=== PATIENT | female | born 1970 | race Caucasian/White ===

== ENCOUNTER 2018-03-19 16:16 | Emergency (ER) | payer SELFPAY ==
[2018-03-19 16:24] VITALS: BP 151/84; PULSE 66; RESP 20; TEMP 98.6; O2SAT 100
--- NOTE | 2018-03-19 17:18 | C.PDOC ---
History Of Present Illness 48 yo female w/o significant PMHx comes in for evaluation of posterior neck/occipital headache gradually developed for past 2 weeks. As per pt, pain is worse since last night. Pain is constant, aching over the back of neck and throbbing over right yazdanism area since today AM, (+) mild photophobia. 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 Pt admits, takes tylenol daily without improvement. Otherwise, pt denies fever, chills, denies worse headache of life, visual changes, focal deficits, CP, SOB, dyspnea, palpitation, denies weakness, sensory or vascular deficits to B/L UEs. Ambulate to Ed for evaluation, appears in pain. Time Seen by Provider: 03/19/18 17:16 Chief Complaint (Nursing): Headache History Per: Patient Past Medical History Reviewed: Historical Data, Nursing Documentation, Vital Signs Vital Signs: Last Vital Signs Temp 98.6 F 03/19/18 16:20 Pulse 66 03/19/18 16:20 Resp 20 03/19/18 16:20 BP 151/84 H 03/19/18 16:20 Pulse Ox 100 03/19/18 16:20 - Medical History PMH: No Chronic Diseases Surgical History: No Surg Hx Family History: States: No Known Family Hx - Social History Hx Tobacco Use: No Hx Alcohol Use: No Hx Substance Use: No Review Of Systems Except As Marked, All Systems Reviewed And Found Negative. Constitutional: Negative for: Fever, Chills Eyes: Negative for: Vision Change ENT: Negative for: Ear Discharge, Nose Discharge, Nose Congestion, Throat Pain Cardiovascular: Negative for: Chest Pain Respiratory: Negative for: Cough, Shortness of Breath Gastrointestinal: Negative for: Nausea, Vomiting, Abdominal Pain Genitourinary: Negative for: Dysuria Musculoskeletal: Positive for: Neck Pain Neurological: Positive for: Headache. Negative for: Weakness, Numbness, Altered Mental Status, Dizziness Physical Exam - Physical Exam Appears: Well, Non-toxic, Other (in pain) Skin: Normal Color, Warm, Dry Head: Atraumatic, Normacephalic Eye(s): bilateral: PERRL, EOMI Ear(s): Bilateral: Normal Nose: No Flaring, No Discharge, No Deformity, No Tenderness Oral Mucosa: Moist Tongue: Normal Appearing Lips: Normal Appearing Throat: No Erythema, No Drooling Neck: Trachea Midline, No Midline Cervical Tenderness, Paracervical Tenderness (diffuse R>L posterior cervical tenderness alongtrapezium muscle from occipital area extend down to upper back with palpable muscle spasm. No skin changes.), No Step Off Deformity, Supple Chest: Symmetrical Cardiovascular: Rhythm Regular, No Murmur, No JVD Respiratory: No Decreased Breath Sounds, No Accessory Muscle Use, No Stridor, No Wheezing Gastrointestinal/Abdominal: Soft, No Tenderness Back: Normal Inspection Extremity: Normal ROM, No Deformity, No Swelling Neurological/Psych: Oriented x3, Normal Speech, Normal Motor, Normal Sensation, Normal Reflexes ED Course And Treatment O2 Sat by Pulse Oximetry: 100 Pulse Ox Interpretation: Normal - CT Scan/US CT head w/o contasr Other Rad Studies (CT/US): Radiology Report Reviewed CT/US Interpretation: Creator : Trinity Gamez MD. Dictator : Trinity Gamez MD. Clerk Supervisor : User Experience Lead : Trinity Gamez MD. Approver2 : Report Date : 03/19/2018 18:01:23. My Comment : . Date of service: 2018-03-19 17:36:43. PROCEDURE: CT HEAD WITHOUT CONTRAST. HISTORY: pain. COMPARISON: None available. TECHNIQUE: Axial computed tomography images were obtained through the head/brain without int ravenous contrast. Radiation dose: Total exam DLP = 969.46 mGy-cm. This CT exam was performed using one or more of the following dose reduction techniques: Automated exposure control, adjustment of the mA and/or kV according to patient size, and/or use of iterative reconstruction technique. FINDINGS: HEMORRHAGE: No intracranial hemorrhage. BRAIN: No mass effect or edema. The sage-white ma tter differentiation appears intact. Please note that MRI with diffusion imaging is more sensitive in the detection of acute ischemic event. VENTRICLES: No hydrocephalus. CALVARIUM: Unremarkable. PARANASAL SINUSES: Unremarkable as visualized. No significant inflammatory changes. MASTOID AIR CELLS: Unremarkable as visualized. No inflammatory changes. OTHER FINDINGS: None. IMPRESSION: No acute intracranial pathology identified. CT C-spine Other Rad Studies (CT/US): Radiology Report Reviewed CT/US Interpretation: IMPRESSION: Reversal cervical curvature. No fracture or spondylolisthesis apparent. Small lucencies which may reflect lytic lesions at the upper mid cervical spine are identified for which follow-up whole-body nuc lear bone scan is recommended and SPECT of the cervical spine for added detail on an likely basis. Progress Note: On re-evaluation, pt is afebrile, hemodynamicaly stable. NOn- toxic. Ambulatory in ED with stable gait. head: AT/NC. Neck: SUpple, (-) midline tenderness, (+) diffuse posterior cervical tenderness wtih muscle spasm R>L. Lungs: CTA B/L, Bs equal B/L. Abd: bengn. neuorlogicaly intact. UA- normal. preg (-). CT head - no acute findings. CT C-spine (+) No fracture or spondylolisthesis apparent. Small lucencies which may reflect lytic lesions at the upper mid cervical spine are identified for which follow-up whole-body nuclear bone scan is recommended and SPECT of the cervical spine for added detail on an likely basis. results review and discussed with patient. Pt ref. to F/u with PMD, Onc 1-2 days for re-eavl and further imaging as indicated. retrun to Ed if any worsening or new changes. Disposition Counseled Patient/Family Regarding: Studies Performed, Diagnosis, Need For Followup - Disposition Referrals: [facility] [Outside] Disposition: HOME/ ROUTINE Disposition Time: 18:11 Condition: STABLE Additional Instructions: Take medication as prescribed FOLLOW UP WITH PMD SOON POSSIBLE WITH C-SPINE RESULTS FOR FURTHER EVALUATION OF BONE LESION ON NECK. return to Ed if any worsening or new changes. Prescriptions: Methocarbamol [Robaxin] 500 mg PO TID #14 tab Prednisone [Deltasone] 40 mg PO DAILY #6 tablet traMADol [Ultram] 50 mg PO TID #7 tab Instructions: Migraine Headaches in Adults, Cervical Muscle Strain Forms: [employer] (Mohawk), Work Excuse Print Language: [place] LEONE[place] - Clinical Impression Clinical Impression: Headache, Cervical strain, Lytic bone lesions on xray
[2018-03-19 17:47] LABS: SQUAMOUS EPITHIAL 1 /hpf (0-5); URINE BACTERIA RARE (<OCC); URINE BILIRUBIN NEGATIVE (NEGATIVE); URINE BLOOD NEGATIVE (NEGATIVE); URINE CLARITY Clear (Clear); URINE COLOR Colorless (YELLOW); URINE GLUCOSE (UA) NORMAL (Normal); URINE LEUKOCYTE ESTERASE NEG Leu/uL (Negative); URINE PROTEIN NEGATIVE (NEGATIVE); URINE UROBILINOGEN NORMAL mg/dL (0.2-1.0)
--- NOTE | 2018-03-19 18:03 | CT ---
Date of service: 2018-03-19 17:36:43 PROCEDURE: CT HEAD WITHOUT CONTRAST. HISTORY: pain COMPARISON: None available. TECHNIQUE: Axial computed tomography images were obtained through the head/brain without intravenous contrast. Radiation dose: Total exam DLP = 969.46 mGy-cm. This CT exam was performed using one or more of the following dose reduction techniques: Automated exposure control, adjustment of the mA and/or kV according to patient size, and/or use of iterative reconstruction technique. FINDINGS: HEMORRHAGE: No intracranial hemorrhage. BRAIN: No mass effect or edema. The sage-white matter differentiation appears intact. Please note that MRI with diffusion imaging is more sensitive in the detection of acute ischemic event. VENTRICLES: No hydrocephalus. CALVARIUM: Unremarkable. PARANASAL SINUSES: Unremarkable as visualized. No significant inflammatory changes. MASTOID AIR CELLS: Unremarkable as visualized. No inflammatory changes. OTHER FINDINGS: None. IMPRESSION: No acute intracranial pathology identified.
--- NOTE | 2018-03-19 18:11 | CT ---
Date of service: 03/19/2018 PROCEDURE: CT Cervical Spine without contrast HISTORY: pain COMPARISON: None available. TECHNIQUE: Axial computed tomography images were obtained of the cervical spine without the use of intravenous contrast. Coronal and sagittal reformatted images were created and reviewed. Radiation dose: Total exam DLP = 524.27 mGy-cm. This CT exam was performed using one or more of the following dose reduction techniques: Automated exposure control, adjustment of the mA and/or kV according to patient size, and/or use of iterative reconstruction technique. FINDINGS: VERTEBRAE: There is a reversal of cervical curvature without fracture or spondylolisthesis apparent. Degenerative changes are mild at the C1-2 articulation with the craniocervical junction unremarkable. Note is made of small lucencies measuring 4-5 mm greatest dimension at the C3, C4 and C5 vertebral bodies which are slightly hypo dense but poorly circumscribed. It is unclear as to the origin of these findings and follow-up whole-body bone scan with nuclear SPECT scan is recommended of the cervical spine for added characterization. DISCS/SPINAL CANAL/NEURAL FORAMINA: No significant central canal or neural foraminal stenosis. Discs heights are grossly preserved. PARASPINAL SOFT TISSUES: Unremarkable. OTHER FINDINGS: None. IMPRESSION: Reversal cervical curvature. No fracture or spondylolisthesis apparent. Small lucencies which may reflect lytic lesions at the upper mid cervical spine are identified for which follow-up whole-body nuclear bone scan is recommended and SPECT of the cervical spine for added detail on an likely basis.
[2018-03-19] MEDS ORDERED: Dexamethasone 4 mg/1 ml IM STA (18:12)
== END 2018-03-19 18:29 | disposition home or self-care (01) ==
LOC: C.ER 16:16
DX: S16.1XXA Strain of muscle, fascia and tendon at neck level, initial encounter (principal); X58.XXXA Exposure to other specified factors, initial encounter; R51 Headache; M89.9 Disorder of bone, unspecified
CPT/HCPCS: 70450; 72125; 81001; 96372; 99284; J1100

== ENCOUNTER 2018-05-22 15:32 | Emergency (ER) | payer OTHER ==
[2018-05-22 15:46] VITALS: BP 128/81; PULSE 76; RESP 16; TEMP 98.3; O2SAT 100
--- NOTE | 2018-05-22 16:00 | C.PDOC ---
Time Seen by Provider: 05/22/18 15:51 Chief Complaint (Nursing): Female Genitourinary History Per: Patient History/Exam Limitations: language barrier Onset/Duration Of Symptoms: Days Current Symptoms Are (Timing): Worse Severity: Moderate Pain Scale Rating Of: 8 Quality Of Discomfort: Burning Associated Symptoms: Urinary Symptoms (burning with urination and increased frequency). denies: Fever, Chills, Nausea, Vomiting, Diarrhea, Constipation Past Medical History Vital Signs: Last Vital Signs Temp 98.3 F 05/22/18 15:44 Pulse 76 05/22/18 15:44 Resp 16 05/22/18 15:44 BP 128/81 05/22/18 15:44 Pulse Ox 100 05/22/18 15:44 - Social History Hx Tobacco Use: No Hx Alcohol Use: No Hx Substance Use: No ED Course And Treatment O2 Sat by Pulse Oximetry: 100 Disposition - Disposition
--- NOTE | 2018-05-22 16:09 | C.PDOC ---
History Of Present Illness Patient is a 48 year old female with no significant past medical history who presents for 1 day of burning with urination and increased frequency. Patient says she had some urinary burning about 1 month ago which resolved spontaneously. Patient took 1 Azo 100mg pill last night and one this morning for the burning with minimal relief. Patient also admits to suprapubic pain which she rates 8/10. Patient denies hematuria. Patient denies any fevers, chills, flank pain, nausea, vomiting, constipation, or diarrhea. LMP: 2 weeks ago. Patient denies any vaginal pain or discharge. <Nicci Little - Last Filed: 05/22/18 16:43> History Per: Patient History/Exam Limitations: language barrier Onset/Duration Of Symptoms: Days Current Symptoms Are (Timing): Still Present Severity: Moderate Pain Scale Rating Of: 8 Quality Of Discomfort: Cramping, Burning Associated Symptoms: denies: Fever, Chills, Nausea, Vomiting, Diarrhea, Constipation Alleviating Factors: Other (Pyridium- mild relief) Abnormal Vaginal Bleeding: No <Nicci Little - Last Filed: 05/22/18 16:43> <Jostin Fernandez - Last Filed: 05/22/18 23:10> Time Seen by Provider: 05/22/18 15:51 Chief Complaint (Nursing): Female Genitourinary Past Medical History Vital Signs: Last Vital Signs Temp 98.3 F 05/22/18 15:44 Pulse 76 05/22/18 15:44 Resp 16 05/22/18 15:44 BP 128/81 05/22/18 15:44 Pulse Ox 100 05/22/18 15:44 - Medical History PMH: No Chronic Diseases Other Surgeries: tubal ligation Family History: States: Unknown Family Hx - Social History Hx Tobacco Use: No Hx Alcohol Use: No Hx Substance Use: No <Nicci Little - Last Filed: 05/22/18 16:43> Vital Signs: Last Vital Signs Temp 98.3 F 05/22/18 15:44 Pulse 76 05/22/18 15:44 Resp 16 05/22/18 15:44 BP 128/81 05/22/18 15:44 Pulse Ox 100 05/22/18 16:45 <Jostin Fernandez - Last Filed: 05/22/18 23:10> Review Of Systems Constitutional: Negative for: Fever, Chills Cardiovascular: Negative for: Chest Pain Respiratory: Negative for: Shortness of Breath Gastrointestinal: Positive for: Abdominal Pain (suprapubic pain). Negative for: Nausea, Vomiting, Diarrhea, Constipation Genitourinary: Positive for: Dysuria, Frequency. Negative for: Hematuria, Vaginal Discharge, Vaginal Bleeding, Pelvic Pain Skin: Negative for: Rash <Nicci Little - Last Filed: 05/22/18 16:43> Physical Exam - Physical Exam Appears: Non-toxic, No Acute Distress Skin: Normal Color, Warm Head: Atraumatic, Normacephalic Eye(s): bilateral: Normal Inspection Cardiovascular: Rhythm Regular Respiratory: Normal Breath Sounds, No Rales, No Rhonchi, No Stridor, No Wheezing Gastrointestinal/Abdominal: Bowel Sounds, Soft, Tenderness (suprapubic tenderness) Back: Normal Inspection, No CVA Tenderness <Nicci Little - Last Filed: 05/22/18 16:43> ED Course And Treatment O2 Sat by Pulse Oximetry: 100 <Nicci Little - Last Filed: 05/22/18 16:43> Medical Decision Making Medical Decision Making: Impression: UTI patient stable for discharge. Patient to take Macrobid 100mg by mouth twice a day for 5 days. Patient to return if pain worsens or has fevers. <Nicci Little - Last Filed: 05/22/18 16:43> Disposition Counseled Patient/Family Regarding: Studies Performed, Diagnosis - Disposition Disposition Time: 04:40 <Nicci Little - Last Filed: 05/22/18 16:43> <Jostin Fernandez - Last Filed: 05/22/18 23:10> - Disposition Referrals: [facility] [Outside] [facility] [Outside] Disposition: HOME/ ROUTINE Condition: GOOD Additional Instructions: Patient to take Macrobid 100mg by mouth twice a day for 5 days. Patient to not take Azo for more than a total of 2 days. SYED ENRIQUEZ, thank you for letting us take care of you today. Your provider was Jostin Fernandez and you were treated for HEADACHE/STOMACH PAINS. The emergency medical care you received today was directed at your acute symptoms. If you were prescribed any medication, please fill it and take as directed. It may take several days for your symptoms to resolve. Return to the Emergency Department if your symptoms worsen, do not improve, or if you have any other problems. Please contact your doctor or call one of the physicians/clinics you have been referred to that are listed on the Patient Visit Information form that is included in your discharge packet. Bring any paperwork you were given at discharge with you along with any medications you are taking to your follow up visit. Our treatment cannot replace ongoing medical care by a primary care provider outside of the emergency department. Thank you for allowing the [facility] team to be part of your care today. Paciente para allyssa Macrobid 100mg por la boca dos veces al da por 5 grubbs. Paciente a no allyssa el AZO para ms que un total de 2 grubbs. SYED ENRIQUEZ, ninfa por dejar que nos cuidemos hoy. Chiang proveedor fue Jostin Fernandez y le trataron por dolor de royce/estmago. La atencin mdica de emergencia que recibi hoy fue dirigida a nic sntomas agudos. Si le recetaron algn medicamento, por favor llnelo y tome segn lo indicado. Puede allyssa varios grubbs para que nic sntomas se resuelvan. Regrese al Departamento de emergencias si nic sntomas empeoran, no mejoran, o si tiene algn otro problema. Pngase en contacto con chiang mdico o llame a tammie de los mdicos o clnicas a los que se chowdhury referido que se enumeran en el formulario de informacin de la visita del paciente que se incluye en chiang paquete de descarga. Traiga cualquier papeleo que le hayan dado al anna con usted junto con cualquier medicamento que est tomando para chiang visita de seguimiento. Nuestro tratamiento no puede reemplazar la atencin mdica en curso por un proveedor de atencin primaria fuera de la departamento de emergencias. Ninfa por permitir que el equipo de abraham de [facility] sea parte de chiang cuidado hoy. Prescriptions: Nitrofurantoin Macrocrystals [Macrobid] 100 mg PO BID #10 cap Instructions: Urinary Tract Infection, Adult (DC) Forms: [employer] (Kittitian) Print Language: TURKMEN - Clinical Impression Clinical Impression: UTI (urinary tract infection) - PA / IP LITIGATION ASSOCIATE / Resident Statement MD/DO has examined the patient and agrees with the treatment plan. (48 yr old female w/ hx of chronic back pain (unchaged today from previous) p/w dysuria. No CVAT on my exam. UTI on labs, well appearing in nad, non-tachy, non febrile, without sig, comorbid, clear for d/c home with abx and f/u.) <Jostin Fernandez - Last Filed: 05/22/18 23:10>
[2018-05-22 16:12] LABS: HCG,QUALITATIVE URINE NEGATIVE (NEGATIVE)
[2018-05-22 16:13] LABS: SQUAMOUS EPITHIAL 1 /hpf (0-5); URINE BACTERIA RARE (<OCC); URINE BILIRUBIN NEGATIVE (NEGATIVE); URINE CLARITY Clear (Clear); URINE COLOR Straw (YELLOW); URINE GLUCOSE (UA) NORMAL (Normal); URINE LEUKOCYTE ESTERASE 3+ Leu/uL (Negative); URINE PROTEIN NEGATIVE (NEGATIVE); URINE UROBILINOGEN NORMAL mg/dL (0.2-1.0)
[2018-05-22 16:16] LABS: URINE BLOOD TRACE (NEGATIVE)
== END 2018-05-22 16:49 | disposition home or self-care (01) ==
LOC: C.ER 15:32
DX: N39.0 Urinary tract infection, site not specified (principal)